=== PATIENT | male | born 1980 | race Caucasian/White ===

== ENCOUNTER 2020-03-30 19:50 | Emergency (ER) | payer SELFPAY ==
[~2020-03-30] VITALS: Ht 177.8 cm; Wt 114.8 kg
[2020-03-30 20:10] VITALS: BP 137/93
[2020-03-30] MEDS ORDERED: DEXAMETHASONE 4 MG/ML VIAL PO ONE (20:30)
[2020-03-30] MEDS ORDERED: HYDROcodone/APAP 5/325 MG 1 TAB TAB PO ONE ×2 (20:30→21:15)
[2020-03-30] MEDS ORDERED: CYCLOBENZAPRINE 10 MG TAB PO ONE (20:30)
[2020-03-30] MEDS ORDERED: ACETAMINOPHEN 325 MG TAB PO ONE (20:30)
[2020-03-30] MEDS ORDERED: IBUPROFEN 600 MG TAB PO ONE (20:30)
[2020-03-30 21:36] VITALS: BP 137/93
== END 2020-03-30 21:36 | disposition home or self-care (01) ==
LOC: MED 19:50
DX: M54.42 Lumbago with sciatica, left side (principal)
CPT/HCPCS: 99284; J1100; 99283